=== PATIENT | male | born 1965 ===

== ENCOUNTER 2017-03-14 02:08 | Emergency (ER) | payer OTHER ==
[2017-03-14 02:20] VITALS: RESP 16; O2SAT 100
--- NOTE | 2017-03-14 02:25 | C.PDOC ---
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 Denies any other injury at this time. Time Seen by Provider: 03/14/17 02:25 Chief Complaint (Nursing): Abnormal Skin Integrity History Per: Patient History/Exam Limitations: no limitations Onset/Duration Of Symptoms: Hrs Location Of Injury: Left: Forearm (Burn) Past Medical History Reviewed: Historical Data, Nursing Documentation, Vital Signs Vital Signs: Last Vital Signs Temp 98.1 F 03/14/17 02:16 Pulse 75 03/14/17 02:16 Resp 16 03/14/17 02:16 BP 125/80 03/14/17 02:16 Pulse Ox 100 03/14/17 02:44 - Medical History PMH: Kidney Stones Family History: States: No Known Family Hx - Social History Hx Alcohol Use: No Hx Substance Use: No - Immunization History Hx Tetanus Toxoid Vaccination: No Hx Influenza Vaccination: No Hx Pneumococcal Vaccination: No Review Of Systems Musculoskeletal: Positive for: Arm Pain (left forearm burn) Skin: Positive for: Other (6x4 left forearm burn) Neurological: Negative for: Numbness Physical Exam - Physical Exam Appears: Well, Non-toxic Skin: Warm, Dry Oral Mucosa: Moist Extremity: Normal ROM (Left forearm), Tenderness (To palpation, 6x4 left forearm burn), Other (6x4 erythema left forearm) ED Course And Treatment O2 Sat by Pulse Oximetry: 100 (Room air) Pulse Ox Interpretation: Normal Progress Note: Tetanus IM and ibuprofen administered. Reevaluation Time: 03:27 Reassessment Condition: Improved Disposition Counseled Patient/Family Regarding: Studies Performed, Diagnosis, Need For Followup, Rx Given - Disposition Referrals: [facility] [Outside] Disposition: HOME/ ROUTINE Disposition Time: 02:25 Condition: FAIR Additional Instructions: Must follow up with workman's comp doctor as well as [facility] burn center [phone] Prescriptions: Naproxen [Naprosyn] 1 tab PO BID PRN #25 tab PRN Reason: Pain Silver Sulfadiazine 1% 50 gm [Silvadene 1% 50 gm] 50 applic EXT BID #1 jar Instructions: Superficial Burn (ED) Print Language: YI - Clinical Impression Clinical Impression: Skin irritation, First degree burn injury - Scribe Statement The provider has reviewed the documentation as recorded by the Scribwilner Lutz All medical record entries made by the Newibwilner were at my direction and personally dictated by me. I have reviewed the chart and agree that the record accurately reflects my personal performance of the history, physical exam, medical decision making, and the department course for this patient. I have also personally directed, reviewed, and agree with the discharge instructions and disposition.
[2017-03-14] MEDS ORDERED: Silver Sulfadiazine 1% Cream (20 gm) ONE (03:35)
[2017-03-14 03:44] VITALS: BP 119/80; PULSE 64; TEMP 98.7
== END 2017-03-14 03:46 | disposition home or self-care (01) ==
LOC: C.ER 02:08
DX: T22.112A Burn of first degree of left forearm, initial encounter (principal); X17.XXXA Contact with hot engines, machinery and tools, initial encounter; Y93.G1 Activity, food preparation and clean up; Y92.89 Other specified places as the place of occurrence of the external cause; Y99.0 Civilian activity done for income or pay